=== PATIENT | female | born 1980 | race Caucasian/White ===

== ENCOUNTER 2018-07-16 07:03 | Inpatient (IN) ==
[2018-07-16] MEDS ORDERED: LACTATED RINGERS 500 ML IV PRN (08:17)
[2018-07-16] MEDS ORDERED: BUTORPHANOL 2 MG/ML VIAL IV PRN (08:17)
[2018-07-16] MEDS ORDERED: ONDANSETRON 4 MG/2 ML VIAL IV PRN ×2 (08:17→13:59)
[2018-07-16] MEDS ORDERED: SODIUM CHLORIDE 0.9% 100 ML IV ONE (08:19)
[2018-07-16] MEDS ORDERED: AMPICILLIN 2,000 MG VIAL ONE (08:19)
[2018-07-16] MEDS ORDERED: BETAMETH SODIUM PHOS/ACETATE 30 MG/5 ML VIAL ONE (08:19)
[2018-07-16 08:24] LABS: Amorphous Crystals,Urine Occasional /HPF (Few); Apearance,Urine CLEAR (Clear); Bilirubin,Urine Negative (Negative); Blood, Urine Moderate mg/dL (Negative); Glucose,Urine (UA) Negative (Negative); Hyaline Casts,Urine 1 /LPF (0-3); Ketones,Urine Negative (Negative); Mucus,Urine Occasional /LPF (Occasional); Nitrite,Urine Negative (Negative); Protein,Urine Negative; RBC,Urine 6 /HPF (0-4); Squamous Epithelial Cell,Urine Occasional /HPF (0-10); Urine Color Yellow (Yellow); Urine Specific Gravity 1.014 (1.001-1.035); Urine Urobilinogen < 2.0 EU/DL (0.2-1.0); WBC,Urine 2 /HPF (0-6)
[2018-07-16] MEDS ORDERED: BETAMETH SODIUM PHOS/ACETATE 30 MG/5 ML VIAL IM ONE (08:30)
[2018-07-16] MEDS ORDERED: AMPICILLIN INJ 2,000 MG in SODIUM CHLORIDE 0.9% 100 ML IV SCH (08:30)
[2018-07-16] MEDS ORDERED: LACTATED RINGERS 1,000 ML IV SCH (08:30)
[2018-07-16 10:04] LABS: Basophils % 0.3 % (0.0-0.8); Eosinophils # 0.1 10*3/uL (0.0-0.87); Eosinophils % 0.9 % (0.00-10.9); Hematocrit 40.1 VOL% (35.7-47.0); Hemoglobin 13.1 GM/DL (12.0-16.0); Immature Granulocytes % 0.4 %; Immature Granulocytes Absolute 0.04 #; Lymphocytes % 17.9 % (21.3-54.2); Mean Corpuscular HGB Conc 32.7 GM/DL (32-36); Mean Corpuscular Hemoglobin 31 PG (27-34); Mean Corpuscular Volume 93.5 FL (87-102); Mean Platelet Volume 13.6 FL (9.6-12.0); Monocytes # 0.8 10*3/uL (0.11-0.8); Monocytes % 7.5 % (1.7-12.7); Neutrophils # 8.2 10*3/uL (1.4-7.4); Platelet Count 183 T/CUMM (130-400); Red Blood Count 4.29 MC/CUMM (3.8-5.5); Red Cell Distribution Width 14.6 % (9.3-17.3); White Blood Count 11.2 T/CUMM (4-12)
[2018-07-16 10:23] LABS: Alanine Aminotransferase 21 U/L (13-56); Albumin 2.5 G/DL (3.4-5.0); Alkaline Phosphatase 109 U/L (45-117); Aspartate Amino Transferase 16 U/L (0-37); Bilirubin,Total < 0.39 MG/DL (0.2-1.0); Blood Urea Nitrogen 13 MG/DL (7-18); Calcium 9.8 MG/DL (8.5-10.1); Glucose 75 MG/DL (74-106); Osmolality,Calculated 273.7 MOS/KG (273-304); Potassium 4.3 MMOL/L (3.5-5.1); Sodium 138 MMOL/L (136-145); Total Protein 7.3 G/DL (6.4-8.3)
[2018-07-16 11:16] LABS: HIV Antigen/Antibody Result Nonreactive (Nonreactive); Hepatitis B Surface Ag Quant < 0.10 Index; Hepatitis B Surface Ag Result Negative (Negative); Rubella Antibody IgG 125.4 IU/ML
[2018-07-16] MEDS ORDERED: ONDANSETRON 4 MG/2 ML VIAL IV ONE (12:12)
[2018-07-16] MEDS ORDERED: ePHEDrine 50 MG/ML AMP IV PRN (12:12)
[2018-07-16] MEDS ORDERED: hydrOXYzine HCL 25 MG/1 ML VIAL IM PRN (12:12)
[2018-07-16] MEDS ORDERED: FAMOTIDINE 20 MG/2 ML VIAL IV ONE (12:12)
[2018-07-16] MEDS ORDERED: PROMETHAZINE 25 MG/1 ML VIAL IM ONE (12:12)
[2018-07-16] MEDS ORDERED: diphenhydrAMINE 50 MG/1 ML VIAL IV PRN ×2 (12:12)
[2018-07-16] MEDS ORDERED: CITRIC ACID/SODIUM CITRATE 30 ML UDCUP PO ONE (12:12)
[2018-07-16] MEDS ORDERED: OXYTOCIN/LR 20 UNIT/1,000 ML BAG IV ONE ×3 (12:29→13:59)
[2018-07-16] MEDS ORDERED: ceFAZolin 3,000 MG in SYRINGE 1 EACH IV ONE ×2 (12:31→12:43)
[2018-07-16] MEDS ORDERED: BUPIVACAINE SPINAL 0.75% 2 ML AMP SPINAL ONE ×2 (12:43→14:29)
[2018-07-16] MEDS ORDERED: ACETAMINOPHEN 325 MG TABLET PO PRN (13:59)
[2018-07-16] MEDS ORDERED: RHO(D) IMMUNE GLOBULIN 300 MCG SYRINGE IM ONE (13:59)
[2018-07-16] MEDS ORDERED: NALOXONE 0.4 MG/ML VIAL IV PRN (14:16)
[2018-07-16] MEDS ORDERED: PROPOFOL 200 MG/20 ML VIAL IV ONE (14:28)
[2018-07-16] MEDS ORDERED: fentaNYL 100 MCG/2 ML VIAL ONE (14:29)
[2018-07-16] MEDS: MORPHINE PCA 30 MG/30 ML SYRINGE IV SCH ×2 (14:29→20:15)
[2018-07-16] MEDS ORDERED: MIDAZOLAM 2 MG/2 ML VIAL ONE (14:29)
[2018-07-16] MEDS ORDERED: SEVOFLURANE 1 UNIT/15 MINUTE INH ONE (14:29)
[2018-07-16] MEDS ORDERED: GLYCOPYRROLATE 0.4 MG/2 ML VIAL ONE ×2 (14:29)
[2018-07-16] MEDS ORDERED: ONDANSETRON 4 MG/2 ML VIAL ONE (14:29)
[2018-07-16] MEDS ORDERED: ROCURONIUM 100 MG/10 ML VIAL IV ONE (14:30)
[2018-07-16] MEDS ORDERED: SUCCINYLCHOLINE 200 MG/10 ML VIAL ONE (14:30)
[2018-07-16] MEDS ORDERED: NEOSTIGMINE 10 MG/10 ML VIAL ONE (14:30)
[2018-07-16] MEDS ORDERED: LACTATED RINGERS 1,000 ML IV ONE (14:30)
[2018-07-16] MEDS ORDERED: MORPHINE 10 MG/10 ML VIAL ONE (14:31)
[2018-07-16 15:52] LABS: Apearance,Urine CLEAR (Clear); Bilirubin,Urine Negative (Negative); Blood, Urine Small mg/dL (Negative); Glucose,Urine (UA) Negative (Negative); Ketones,Urine Negative (Negative); Mucus,Urine Occasional /LPF (Occasional); Nitrite,Urine Negative (Negative); Protein,Urine Negative; RBC,Urine 2 /HPF (0-4); Squamous Epithelial Cell,Urine Occasional /HPF (0-10); Urine Color Straw (Yellow); Urine Specific Gravity 1.006 (1.001-1.035); Urine Urobilinogen < 2.0 EU/DL (0.2-1.0); WBC,Urine <1 /HPF (0-6)
[2018-07-16] MEDS: LACTATED RINGERS 1,000 ML IV SCH (20:13)
[2018-07-16 21:27] LABS: Basophils % 0.1 % (0.0-0.8); Hematocrit 34.6 VOL% (35.7-47.0); Hemoglobin 11.4 GM/DL (12.0-16.0); Immature Granulocytes % 0.5 %; Immature Granulocytes Absolute 0.09 #; Lymphocytes # 1.4 10*3/uL (1.4-4.0); Lymphocytes % 8.2 % (21.3-54.2); Mean Corpuscular HGB Conc 32.9 GM/DL (32-36); Mean Corpuscular Hemoglobin 31 PG (27-34); Mean Corpuscular Volume 93.3 FL (87-102); Mean Platelet Volume 12.8 FL (9.6-12.0); Monocytes # 0.7 10*3/uL (0.11-0.8); Monocytes % 4.1 % (1.7-12.7); Neutrophils # 15.2 10*3/uL (1.4-7.4); Neutrophils % 87.1 % (38.7-73.9); Platelet Count 199 T/CUMM (130-400); Red Blood Count 3.71 MC/CUMM (3.8-5.5); Red Cell Distribution Width 14.5 % (9.3-17.3); White Blood Count 17.4 T/CUMM (4-12)
[2018-07-16] MEDS: ceFAZolin 1,000 MG in SYRINGE 1 EACH IV SCH (22:43)
[2018-07-17] MEDS: LACTATED RINGERS 1,000 ML IV SCH (04:05)
[2018-07-17] MEDS: DOCUSATE SODIUM 100 MG CAPSULE PO SCH ×3 (05:33→20:18)
[2018-07-17 05:45] LABS: Basophils % 0.1 % (0.0-0.8); Eosinophils % 0.1 % (0.00-10.9); Hematocrit 31.1 VOL% (35.7-47.0); Hemoglobin 10.4 GM/DL (12.0-16.0); Immature Granulocytes % 0.6 %; Immature Granulocytes Absolute 0.08 #; Lymphocytes # 1.8 10*3/uL (1.4-4.0); Lymphocytes % 12.6 % (21.3-54.2); Mean Corpuscular HGB Conc 33.4 GM/DL (32-36); Mean Corpuscular Hemoglobin 31 PG (27-34); Mean Corpuscular Volume 93.1 FL (87-102); Mean Platelet Volume 13.3 FL (9.6-12.0); Monocytes # 1.1 10*3/uL (0.11-0.8); Monocytes % 7.8 % (1.7-12.7); Neutrophils # 11.1 10*3/uL (1.4-7.4); Neutrophils % 78.8 % (38.7-73.9); Platelet Count 179 T/CUMM (130-400); Red Blood Count 3.34 MC/CUMM (3.8-5.5); Red Cell Distribution Width 14.6 % (9.3-17.3)
[2018-07-17] MEDS: ceFAZolin 1,000 MG in SYRINGE 1 EACH IV SCH (05:56)
[2018-07-17] MEDS: IBUPROFEN 800 MG TABLET PO PRN ×2 (07:58→22:04)
[2018-07-17] MEDS: MULTIVITAMIN (PRENATAL) TABLET PO SCH (09:35)
[2018-07-17] MEDS: SIMETHICONE CHEW 80 MG TABLET PO PRN (20:18)
[2018-07-17] MEDS: MAGNESIUM HYDROXIDE SUSP 30 ML UDCUP PO PRN (20:18)
[2018-07-18 07:17] VITALS: BP 138/65
[2018-07-18] MEDS: MULTIVITAMIN (PRENATAL) TABLET PO SCH (08:47)
[2018-07-18] MEDS: IBUPROFEN 800 MG TABLET PO PRN (08:47)
[2018-07-18] MEDS: MAGNESIUM HYDROXIDE SUSP 30 ML UDCUP PO PRN (08:47)
[2018-07-18] MEDS: DOCUSATE SODIUM 100 MG CAPSULE PO SCH (08:47)
[2018-07-18] MEDS: SIMETHICONE CHEW 80 MG TABLET PO PRN (08:47)
[2018-07-18] MEDS ORDERED: DIPH/TET/ACEL PERT BOOSTER VACCINE 0.5 ML VIAL IM ONE (15:00)
== END 2018-07-18 15:10 | disposition home or self-care (01) | DRG 765 ==
LOC: N.LDOUT 07:03 → N.LD 07:07 → N.OB 17:00
PROVIDERS: ADMIT Obstetrics & Gynecology; ATTEND Obstetrics & Gynecology
PROC: LDCSECT (ICD-10-PCS; 2018-07-16 13:00)